=== PATIENT | male | born 1995 ===

== ENCOUNTER 2021-06-07 20:35 | Emergency (ER) | payer SELFPAY ==
[2021-06-07 21:03] VITALS: BP 142/71
--- NOTE | 2021-06-07 21:12 | Emergency Department Report ---
ED Lower Extremity HPI - General Chief Complaint: Extremity Injury, Lower Stated Complaint: TORN LIGAMENT IN KNEE Time Seen by Provider: 06/07/21 21:05 Source: patient Mode of arrival: Ambulatory Limitations: No Limitations - History of Present Illness Initial Comments: 25-year-old male presents to the ER today with complaints of left anterior knee pain after injuring it while playing soccer yesterday. Patient states that he suffered a near fall injury while running on the soccer field yesterday. He states that when he caught himself, he somehow injured his left knee. He states since then he has been having pain in the r left anterior knee with associated swelling. He reports increased pain with movement of the knee and with walking. He denies any prior issues with his left knee or any surgeries. He has not taken anything for pain since it started. MD Complaint: knee injury - Related Data Previous Rx's Medication Instructions Recorded Last Taken Type Ibuprofen [Motrin] 600 mg PO Q8H PRN #30 tablet 06/07/21 Unknown Rx Allergies Allergy/AdvReac Type Severity Reaction Status Date / Time No Known Allergies Allergy Unverified 06/07/21 20:50 ED Review of Systems ROS: Stated complaint: TORN LIGAMENT IN KNEE Other details as noted in HPI Comment: All other systems reviewed and negative Constitutional: denies: chills, fever Eyes: denies: eye pain, eye discharge, vision change ENT: denies: ear pain, throat pain Respiratory: denies: cough, shortness of breath, SOB with exertion, SOB at rest, wheezing Cardiovascular: denies: chest pain, palpitations Gastrointestinal: denies: abdominal pain, nausea, diarrhea, constipation, hematemesis, melena, hematochezia Genitourinary: denies: urgency, dysuria, frequency, hematuria, discharge, testicular pain Musculoskeletal: joint swelling, arthralgia Skin: denies: rash, lesions, change in color, change in hair/nails, pruritus Neurological: abnormal gait. denies: headache, weakness, numbness, paresthesias, confusion Psychiatric: denies: anxiety, depression, auditory hallucinations, visual hallucinations, homicidal thoughts ED Past Medical Hx - Past Medical History Previous Medical History?: No Hx Hypertension: No - Surgical History Past Surgical History?: No - Medications Home Medications: Home Medications Medication Instructions Recorded Confirmed Last Taken Type Ibuprofen [Motrin] 600 mg PO Q8H PRN #30 tablet 06/07/21 Unknown Rx ED Physical Exam - General Limitations: No Limitations General appearance: alert, in no apparent distress - Head Head exam: Present: atraumatic, normocephalic, normal inspection - Eye Eye exam: Present: normal appearance, PERRL, EOMI Pupils: Present: normal accommodation - Neck Neck exam: Present: normal inspection, full ROM - Respiratory Respiratory exam: Present: normal lung sounds bilaterally. Absent: respiratory distress, wheezes, rales, rhonchi - Cardiovascular Cardiovascular Exam: Present: regular rate, normal rhythm, normal heart sounds - Expanded Lower Extremity Exam Left Knee exam: Present: normal inspection, full ROM, tenderness (mild ttp medial anterior left knee. Mild swelling. No apparent effusion. No erythema or bruising or laxity noted ) Neuro vascular tendon exam: Present: no vascular compromise. Absent: motor deficit, sensory deficit, tendon deficit Gait: Positive: observed and limited by pain - Neurological Exam Neurological exam: Present: alert, oriented X3, CN II-XII intact - Psychiatric Psychiatric exam: Present: normal affect, normal mood - Skin Skin exam: Present: intact ED Course Vital Signs 06/07/21 20:43 Temperature 99.0 F Pulse Rate 91 H Respiratory 16 Rate Blood Pressure 142/71 [Left] O2 Sat by Pulse 100 Oximetry ED Lower Extremity MDM - Radiology Data Radiology results: report reviewed Patient: YOGESH FALLON MR#: [id number] : 1995 Acct:[id number] Age/Sex: 25 / M ADM Date: 06/07/21 Loc: ED Attending Dr: Ordering Physician: IKE CASTRO MD Date of Service: 06/07/21 Procedure(s): XR knee 3V LT Accession Number(s): [id number] cc: IKE CASTRO MD Fluoro Time In Minutes: LEFT KNEE 3 VIEW(S) INDICATION / CLINICAL INFORMATION: trauma COMPARISON: None available. FINDINGS: BONES / JOINT(S): No acute fracture or subluxation. No significant arthritis. SOFT TISSUES: No significant abnormality. ADDITIONAL FINDINGS: None. Signer Name: Sal Nieto MD Signed: 06/07/2021 9:29 PM Workstation Name: [id number] Transcribed By: SB Dictated By: SAL NIETO MD Electronically Authenticated By: SAL NIETO MD Signed Date/Time: 06/07/212128 DD/ 28 TD/TT: Critical care attestation.: If time is entered above; I have spent that time in minutes in the direct care of this critically ill patient, excluding procedure time. ED Disposition Clinical Impression: Knee sprain Disposition: HOME / SELF CARE / HOMELESS Is pt being admited?: No Does the pt Need Aspirin: No Condition: Stable Instructions: Knee Sprain, Adult, [id number], Elastic Bandage and RICE Therapy Additional Instructions: Take ibuprofen as prescribed to help with pain. Use Yogesh wrap and crutches as instructed. You can apply ice to help with any pain and swelling. Recommend resting and elevating your legs as often as possible for the next 3 to 4 days. Your x-ray today does not show any broken bones or dislocation. Unfortunately x-rays are not able to see any ligamental or meniscal injuries and so if you continue to have pain and discomfort in the knee I do recommend that you follow- up with application development specialist listed on your discharge instructions for further evaluations. Return to the ER if your symptoms changes or worsens in any way. Prescriptions: Ibuprofen [Motrin] 600 mg PO Q8H PRN #30 tablet PRN Reason: Pain Referrals: ERVIN LONG MD [Staff Physician] - 3-5 Days Forms: Work/School Release Form(ED) Time of Disposition: 21:45
--- NOTE | 2021-06-07 21:34 | XRay Report ---
LEFT KNEE 3 VIEW(S) INDICATION / CLINICAL INFORMATION: trauma COMPARISON: None available. FINDINGS: BONES / JOINT(S): No acute fracture or subluxation. No significant arthritis. SOFT TISSUES: No significant abnormality. ADDITIONAL FINDINGS: None. Signer Name: Sal Nieto MD Signed: 06/07/2021 9:29 PM Workstation Name: [id number]
== END 2021-06-07 22:25 | disposition home or self-care (01) ==
LOC: ED 20:35
DX: S83.92XA Sprain of unspecified site of left knee, initial encounter (principal); W18.30XA Fall on same level, unspecified, initial encounter; Y93.66 Activity, soccer; Y92.322 Soccer field as the place of occurrence of the external cause; Y99.8 Other external cause status
CPT/HCPCS: 99283